=== PATIENT | male | born 2005 | race Hispanic/Latino ===

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

== ENCOUNTER 2024-06-05 16:21 | Emergency (ER) | payer OTHER ==
[~2024-06-05] VITALS: Ht 177.8 cm; Wt 56.7 kg
[2024-06-05 17:01] LABS: CORONAVIRUS COVID-19 AG NEGATIVE (NEGATIVE); INFLUENZA A AG NEGATIVE (NEGATIVE); INFLUENZA B AG NEGATIVE (NEGATIVE); STREPTOCOCCUS GRP A ANTIGEN NEGATIVE (NEGATIVE)
[2024-06-05] MEDS ORDERED: PREDNISONE20 MG PO (17:16)
[2024-06-05] MEDS ORDERED: AZITHROMYCIN250 MG PO (17:16)
[2024-06-05] MEDS ORDERED: VENTOLIN HFA18 GM INH (17:16)
[2024-06-05 17:34] VITALS: PULSE 82; RESP 16; TEMP 99; O2SAT 97
== END 2024-06-05 17:38 | disposition home or self-care (01) ==
LOC: ER 16:24
DX: R05.9 Cough, unspecified (principal); J06.9 Acute upper respiratory infection, unspecified; R53.81 Other malaise; F64.9 Gender identity disorder, unspecified; Z11.52 Encounter for screening for COVID-19
CPT/HCPCS: 83518; 87070; 99283